=== PATIENT | male | born 1970 | race Hispanic/Latino ===

== ENCOUNTER 2017-12-28 02:14 | Emergency (ER) | payer SELFPAY ==
[2017-12-28] MEDS ORDERED: ONDANSETRON HCL 4 MG/2 ML VIAL ONE (02:46)
[2017-12-28 02:49] LABS: BASOPHILS % (AUTO) 0.3 % (0.0-5.0); EOSINOPHILS % (AUTO) 0.1 % (0.0-8.0); HEMATOCRIT 41.8 % (42-54); LYMPHOCYTES % (AUTO) 14.4 % (21.0-51.0); MEAN CORPUSCULAR HGB CONC 35.1 g/dL (32.0-36.0); MEAN CORPUSCULAR VOLUME 93.8 fL (79-99); MONOCYTES % (AUTO) 19.2 % (3.0-13.0); PLATELET COUNT (AUTO) 166 K/uL (130-400); RED BLOOD CELL COUNT(AUTO) 4.46 MIL/uL (4.50-6.20); RED CELL DISTRIBUTION WIDTH 12.4 % (11.0-15.5); WHITE BLOOD COUNT (AUTO) 4.7 K/uL (4.8-10.8)
[2017-12-28 02:54] LABS: CREATININE 1.1 mg/dL (0.5-1.5); POTASSIUM 3.2 mmol/L (3.5-5.1)
[2017-12-28 02:59] LABS: ALBUMIN 4.2 g/dL (3.5-5.0); BILIRUBIN,TOTAL 0.5 mg/dL (0.2-1.0); TOTAL PROTEIN, SERUM 8.1 g/dL (6.0-8.3)
[2017-12-28] MEDS ORDERED: ACETAMINOPHEN 325 MG TAB ONE (03:12)
[2017-12-28] MEDS ORDERED: OSELTAMIVIR PHOSPHATE 75 MG CAP ONE (03:35)
[2017-12-28 04:27] LABS: APPEARANCE,URINE CLEAR (CLEAR); BILIRUBIN,URINE Negative (NEGATIVE); COLOR,URINE Dark Yellow (YELLOW); GLUCOSE, URINE (UA) Negative (NEGATIVE); KETONES,URINE 15 mg/dL (NEGATIVE); LEUKOCYTE ESTERASE ,URINE Negative (NEGATIVE); NITRATE,URINE Negative (NEGATIVE); OCCULT BLOOD,URINE Negative (NEGATIVE); PH,URINE 5.5 (5.0-8.0); PROTEIN,URINE POS 2+ (NEGATIVE)
== END 2017-12-28 04:32 | disposition home or self-care (01) ==
LOC: EDH 02:14
DX: J09.X2 Influenza due to identified novel influenza A virus with other respiratory manifestations (principal); Z90.49 Acquired absence of other specified parts of digestive tract
CPT/HCPCS: 36415; 71045; 80053; 81003; 82150; 83605; 83690; 85025; 87040 ×2; 87088; 87804 ×2; 93005; 96361; 96374; 99285; J2405

== ENCOUNTER 2019-12-17 20:21 | Emergency (ER) | payer SELFPAY ==
[~2019-12-17 20:21] MED LIST: TETANUS/DIPHTHERIA TOXOID [ADULT] 0.5 ML VIAL IM ONE
[2019-12-17] MEDS ORDERED: CEFAZOLIN SODIUM 1 GM VIAL ONE (20:54)
[2019-12-17] MEDS ORDERED: ACETAMINOPHEN EXTRA STRENGTH 500 MG TABLET ONE (20:55)
== END 2019-12-17 23:53 | disposition home or self-care (01) ==
LOC: EDH 20:21
DX: S61.212A Laceration without foreign body of right middle finger without damage to nail, initial encounter (principal); W23.0XXA Caught, crushed, jammed, or pinched between moving objects, initial encounter; Y93.89 Activity, other specified; Y92.89 Other specified places as the place of occurrence of the external cause; Y99.8 Other external cause status
CPT/HCPCS: 12001; 73140; 90471; 90714; 96365; 99284; J0690

== ENCOUNTER 2019-12-19 22:06 | Emergency (ER) | payer OTHER ==
[2019-12-19] MEDS ORDERED: CLINDAMYCIN 900 MG/D5% WATER 50 ML IV ONE (22:46)
== END 2019-12-19 23:56 | disposition home or self-care (01) ==
LOC: EDH 22:06
DX: L03.011 Cellulitis of right finger (principal)
CPT/HCPCS: 96365; 99284; J3490

== ENCOUNTER 2023-01-02 21:53 | Emergency (ER) | payer OTHER ==
[~2023-01-02] VITALS: Ht 170.2 cm; Wt 82.6 kg
[~2023-01-02 21:53] MED LIST changes: +ALBU8.5H8 IH; +AMOX-429 PO; +D-ME1POW16 PO; +DEXA6TAB7 PO; -TETANUS/DIPHTHERIA TOXOID [ADULT] 0.5 ML VIAL IM ONE
[2023-01-02 23:43] LABS: BASOPHILS # (AUTO) 0.05 K/uL (0.00-0.20); BASOPHILS % (AUTO) 0.8 % (0.0-5.0); EOSINOPHILS # (AUTO) 0.41 K/uL (0.00-0.70); EOSINOPHILS % (AUTO) 6.9 % (0.0-8.0); HEMATOCRIT 42.8 % (42-54); IMMATURE GRANULOCYTE ABSOLUTE 0.01 K/uL (0-1); LYMPHOCYTES # (AUTO) 2.1 K/uL (1.0-4.8); LYMPHOCYTES % (AUTO) 35.7 % (21.0-51.0); MEAN CORPUSCULAR HEMOGLOBIN 33.1 pg (27.0-33.0); MEAN CORPUSCULAR HGB CONC 34.3 g/dL (32.0-36.0); MEAN CORPUSCULAR VOLUME 96.4 fL (79-99); MONOCYTES # (AUTO) 0.7 K/uL (0.1-1.0); MONOCYTES % (AUTO) 10.9 % (3.0-13.0); NEUTROPHILS # (AUTO) 2.7 K/uL (1.8-7.7); NEUTROPHILS % (AUTO) 45.5 % (40.0-77.0); PLATELET COUNT (AUTO) 185 K/uL (130-400); RED BLOOD CELL COUNT(AUTO) 4.44 MIL/uL (4.50-6.20); WHITE BLOOD COUNT (AUTO) 5.9 K/uL (4.8-10.8)
[2023-01-02 23:52] LABS: POTASSIUM 3.3 mmol/L (3.5-5.1)
[2023-01-02] MEDS ORDERED: SULF1TAB42 PO (23:58)
[2023-01-02] MEDS ORDERED: MUPI22OI2 TP (23:58)
[2023-01-03 00:21] VITALS: BP 145/84; PULSE 74; RESP 18; O2SAT 98
== END 2023-01-03 00:22 | disposition home or self-care (01) ==
LOC: EDH 21:53
DX: L02.13 Carbuncle of neck (principal); L02.12 Furuncle of neck; Z79.899 Other long term (current) drug therapy
CPT/HCPCS: 36415; 80048; 85025

== ENCOUNTER 2023-12-10 23:13 | Emergency (ER) | payer BC ==
[~2023-12-10] VITALS: Ht 170.2 cm; Wt 82.2 kg
[~2023-12-10 23:13] MED LIST changes: +MUPI22OI2 TP; +SULF1TAB42 PO
[2023-12-10] MEDS ORDERED: ERYT1OIN7 OP (23:47)
[2023-12-10] MEDS ORDERED: DICL2.5D7 OP (23:47)
[2023-12-11] MEDS: FLUORESCEIN SODIUM 1 STRIP STRIP OP SCH (00:20)
[2023-12-11] MEDS: TETRACAINE HCL 0.5% 4 ML OPHTH SOLN OP SCH (00:20)
[2023-12-11] MEDS: tobRAMYCin 0.3% 5 ML OPTH SOLN OD SCH (01:46)
[2023-12-11] MEDS: ketOROlac 60 MG VIAL (30MG/ML) IM ONE (01:46)
[2023-12-11 02:33] VITALS: BP 142/110; PULSE 79; RESP 18; TEMP 97.5; O2SAT 100
== END 2023-12-11 02:39 | disposition home or self-care (01) ==
LOC: EDH 23:13
DX: T15.01XA Foreign body in cornea, right eye, initial encounter (principal); Z79.52 Long term (current) use of systemic steroids; Z79.899 Other long term (current) drug therapy; Z90.49 Acquired absence of other specified parts of digestive tract; W44.8XXA Other foreign body entering into or through a natural orifice, initial encounter; Y93.89 Activity, other specified; Y92.89 Other specified places as the place of occurrence of the external cause; Y99.8 Other external cause status
CPT/HCPCS: 99284; 65222; 96372; J1885